=== PATIENT | male | born 1950 | race Two or more races ===

== ENCOUNTER 2019-05-16 12:13 | Emergency (ER) | payer OTHER, MEDICAID ==
[~2019-05-16] VITALS: Ht 162.6 cm; Wt 76.0 kg
[2019-05-16 12:20] VITALS: BP 130/74
[2019-05-16] MEDS ORDERED: ACETAMINOPHEN 325MG TABLET PO ONE (15:00)
== END 2019-05-16 17:11 | disposition home or self-care (01) ==
LOC: ER 12:13
DX: S62.647A Nondisplaced fracture of proximal phalanx of left little finger, initial encounter for closed fracture (principal); M25.512 Pain in left shoulder; V43.52XA Car driver injured in collision with other type car in traffic accident, initial encounter; Y93.89 Activity, other specified; Y92.488 Other paved roadways as the place of occurrence of the external cause
CPT/HCPCS: 29130; 73030; 73130; 99283